=== PATIENT | male | born 1945 | race Caucasian/White ===

== ENCOUNTER → 2017-02-11 | Outpatient (CLI) | payer MEDICARE, BC ==
[~2017-02-11] MED LIST: COZAAR100 MG PO; GLUCOPHAGE DPS850 MG PO; NORCO 5-325 TA1 EACH PO; ZOCOR DPS40 MG PO; ZYLOPRIM-DPS100 MG PO
== END | disposition home or self-care (01) ==
LOC: RAD.S 14:28
DX: M79.605 Pain in left leg (principal); M79.89 Other specified soft tissue disorders